=== PATIENT | male | born 1955 | race Caucasian/White ===

== ENCOUNTER 2017-01-08 10:39 | Emergency (ER) | payer BC ==
[~2017-01-08] VITALS: Ht 177.8 cm; Wt 99.3 kg
--- NOTE | ~2017-01-08 | CR72 ---
[facility] A Service of [facility] & [facility] RADIOLOGY TEXT RESULTS PATIENT: BUFFY GUTIERREZ LOCATION: [facility] : 57 UNIT #: [id number] AGE: [address]: Rakesh Fenton MD SEX: M ORDER DR: [id number] [facility] [address] [place], [place] [address] [id number] MR#: [id number] Acc #: [id number] NAME: BUFFY GUTIERREZ : 1955 SEX: M STUDY DATE/TIME: 01/08/2017 11:34 UNIT: [facility] ROOM: STUDY DESCRIPTION: CR Chest Single View Portable Attending Physician: Rakesh Fenton M.D. Ordering Physician: Rakesh Fenton M.D. Primary Care Physician: No Primary Care Physician MEDICAL IMAGING REPORT This report is preliminary unless electronic signature is present EXAM Chest x-ray, 01/08/2017. HISTORY 61-year-old male in the ED with new onset respiratory difficulty. Sent from his physician's office with decreased oxygen saturation. TECHNIQUE AP portable chest x-ray. FINDINGS The exam shows shallow lung expansion with mild infiltrate or atelectasis in the lung bases. Mid and upper lungs are clear. No visible airspace consolidation or pleural effusion. Heart size and pulmonary vascularity are within normal limits. IMPRESSION Shallow lung expansion with mild infiltrate or atelectasis in the lung bases. Dictated by... Dakotah Gary M.D. THIS IS AN ELECTRONICALLY VERIFIED REPORT Dakotah Gary M.D. at 01/09/2017 5:57 AM SOCO/hillary TD: 01/08/2017 17:31 JOB #: [id number] MEDICAL IMAGING REPORT Page 1 of 1 COPY
--- NOTE | ~2017-01-08 | EKG ---
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
[2017-01-08 11:34] LABS: BASOPHIL% 0.1 % (0-2.5); HEMATOCRIT 47.9 % (38.0-50.0); HEMOGLOBIN 16.6 gm/dL (13.0-16.0); LYMPHOCYTE# 0.8 X10e3 (1.0-3.5); LYMPHOCYTE% 3.8 % (17.0-45.0); MEAN CELL VOLUME 92.5 FL (83-96); MEAN CORPUSCULAR HEMOGLOBIN 32.1 PG (28-34); MEAN CORPUSCULAR HGB CONC 34.7 g/dL (30-36); MEAN PLATELET VOLUME 7.6 FL (6.5-11.5); MONOCYTE# 1.7 X10e3 (0-1.0); MONOCYTE% 8.6 % (3.0-12.0); NEUTROPHIL# 17.5 X10e3 (1.5-7.1); NEUTROPHIL% 87.5 % (40-75); PLATELET COUNT 189 X10e3 (140-420); RED BLOOD COUNT 5.18 X10e (3.90-5.60); RED CELL DISTRIBUTION WIDTH 13.5 % (11.0-15.5)
[2017-01-08 11:42] LABS: INR 1.1; PARTIAL THROMBOPLASTIN TIME 26.8 SECONDS (23.5-31.3); PROTHROMBIN TIME (PATIENT) 11.4 SECONDS (10.0-11.7)
[2017-01-08 11:44] LABS: POC - CKMB <1.0 ng/mL (0.0-7.9); POC - TROPONIN <0.05 ng/mL (<=0.05)
[2017-01-08 11:59] LABS: ALBUMIN SERUM 4.4 g/dL (3.5-5.0); BILIRUBIN, DIRECT 0.2 mg/dL (0.0-0.2); BILIRUBIN,INDIRECT 1.2 mg/dL (0.0-0.9); BILIRUBIN,TOTAL 1.4 mg/dL (0.2-2.0); BUN/CREATININE RATIO 14.54; CALCIUM SERUM 8.9 mg/dL (8.4-10.2); CREATININE SERUM 1.1 mg/dL (0.6-1.4); GLOM FILT RATE Estimated 72.6 mL/min (>60); POTASSIUM 4.1 mmol/L (3.5-5.1); PROTEIN TOTAL SERUM 8.1 g/dL (6.0-8.3)
[2017-01-08 12:03] LABS: DIFF IND YES
[2017-01-08 12:04] LABS: PLATELET ESTIMATE NORMAL (NORMAL)
== END 2017-01-08 13:07 | disposition home or self-care (01) ==
LOC: CED 10:39
PROVIDERS: Emergency Medicine
DX: J02.0 Streptococcal pharyngitis (principal)
CPT/HCPCS: 36415; 71010; 80048; 80076; 82553; 83605; 83880; 84484; 85025; 85610; 85730; 87040; 87880; 93005; 96361; 96374; 99284; J1885